=== PATIENT | female | born 1935 | race Caucasian/White ===

== ENCOUNTER 2019-07-22 03:11 | Inpatient (IN) | payer OTHER ==
[~2019-07-22] VITALS: Ht 152.4 cm; Wt 49.9 kg
--- NOTE | 2019-07-22 03:24 | NUR ---
blood and cultures drawn and sent with yarn bleaching machine operator.
--- NOTE | 2019-07-22 03:27 | NUR ---
flu swap sample taken and sent with phelebotomist.
[2019-07-22] MEDS ORDERED: VANCOMYCIN 1 GM VIAL ONE (03:30)
[2019-07-22] MEDS ORDERED: PIPERACILLIN /TAZOBACTAM 3.375 G VIAL IV ONE (03:30)
[2019-07-22] MEDS ORDERED: VANCOMYCIN 1 GM in IV D5W 250 ML IV ONE (03:30)
[2019-07-22] MEDS ORDERED: IV NS 0.9% 1,000 ML BAG IV ONE (03:30)
[2019-07-22] MEDS ORDERED: PIPERACILLIN /TAZOBACTAM 3.375 G in IV D5W 50 ML IV ONE (03:30)
--- NOTE | 2019-07-22 03:39 | NUR ---
urine collected and sent to lab
--- NOTE | 2019-07-22 03:48 | NUR ---
PT CAME TO ER BIB RA C/O WEAKNESS 2x DAYS. PT STATES THAT SHE WAS FEELING CONGESTED AND WEAK, UNABLE TO STAND, AND HAVING TROUBLE BREATHING. AAOX4. NOT IN ANY DISTRESS. PLACED ON NON-REBREATHER MASK 15L, 100% O2. CONNECTED TO RIGHT OF WAY MAN.
[2019-07-22 03:55] LABS: BASOPHILS # (AUTO) 0.1 /CMM (0.0-0.2); BASOPHILS % (AUTO) 0.6 % (0.0-2.0); EOSINOPHILS % (AUTO) 0.2 % (0.0-6.0); HEMATOCRIT 44 % (33-45); HEMOGLOBIN 14.6 g/dL (11.5-14.8); LYMPHOCYTES # (AUTO) 1.8 /CMM (0.8-4.8); LYMPHOCYTES % (AUTO) 12.6 % (20.0-44.0); MEAN CORPUSCULAR HGB CONC 33 g/dl (31.0-36.0); MEAN CORPUSCULAR VOLUME 101 fL (82-100); NEUTROPHILS # (AUTO) 11.5 /CMM (1.8-8.9); NEUTROPHILS % (AUTO) 79.6 % (43.0-81.0); PLATELET COUNT (AUTO) 250 /CMM (150-450); RED BLOOD CELL COUNT(AUTO) 4.31 MIL/uL (4.0-5.2); WHITE BLOOD COUNT (AUTO) 14.4 K/uL (4.3-11.0)
[2019-07-22 04:04] LABS: APPEARANCE,URINE Clear (CLEAR); BILIRUBIN,URINE Negative (NEGATIVE); BLOOD, URINE Trace-lysed Ery/uL (NEGATIVE); COLOR,URINE Yellow (YELLOW); KETONES,URINE 40 (NEGATIVE); LEUKOCYTE ESTERASE ,URINE Negative (NEGATIVE); NITRITE, URINE Negative (NEGATIVE); PROTEIN,URINE Negative (NEGATIVE); UGLUCOSE Negative (NEGATIVE); UROBILINOGEN,URINE 0.2 EU/dL (0.2)
[2019-07-22 04:10] LABS: CALCIUM, SERUM 9.9 mg/dL (8.5-10.1); CARBON DIOXIDE 22 mmol/L (21-32); CHLORIDE 100 mmol/L (98-107); CREATININE 1.2 mg/dL (0.6-1.3); GLUCOSE 151 mg/dL (74-106); POTASSIUM 4.4 mmol/L (3.5-5.1); SODIUM SERUM 138 mmol/L (136-145); UREA NITROGEN, BLOOD 15 mg/dL (7-18)
[2019-07-22 04:16] LABS: BACTERIA,URINE None seen /HPF (None Seen); SQUAMOUS EPITHELIAL CELL,UR Few /HPF (None Seen); WBC,URINE 0-2 /HPF (0-3)
[2019-07-22 04:24] LABS: ALANINE AMINOTRANSFERASE 15 U/L (12-78); ALBUMIN 3.8 g/dL (3.4-5.0); ALKALINE PHOSPHATASE 97 U/L (46-116); ASPARTATE AMINOTRANSFERASE 18 U/L (15-37); B-TYPE NATRIURETIC PEPTIDE 7681 PG/ML (0-125); BILIRUBIN,DIRECT 0.2 mg/dL (0.0-0.2); BILIRUBIN,TOTAL 0.8 mg/dL (0.2-1.0); TOTAL PROTEIN, SERUM 7.9 g/dL (6.4-8.2)
[2019-07-22] MEDS ORDERED: ACETAMINOPHEN ES 500 MG TABLET ONE (04:36)
[2019-07-22] MEDS ORDERED: ACETAMINOPHEN ES 500 MG TABLET PO ONE (05:00)
--- NOTE | 2019-07-22 05:04 | NUR ---
placed on 6L simple face mask oxygen saturation at 99%
--- NOTE | 2019-07-22 05:21 | NUR ---
[facility] CALLED PER ER MD ORDER.
--- NOTE | 2019-07-22 05:37 | NUR ---
JAD RODRIGUEZ TALKING TO DR. LOUISE REGARDING PT.
--- NOTE | 2019-07-22 06:00 | NUR ---
lab at bedside for redrawing of blood for troponin.
--- NOTE | 2019-07-22 06:42 | NUR ---
[facility] TO [facility] REPEAT TROP RESULT. TROPONIN RESULT GIVEN. PENDING LACTIC ACID
--- NOTE | 2019-07-22 06:55 | NUR ---
Patient given 3L oxygen. saturation at 99%.
--- NOTE | 2019-07-22 07:01 | NUR ---
AUTH #[id number] TO ADMIT INPATIENT PER [facility] ACID PLANT HELPER DIOGO.
--- NOTE | 2019-07-22 07:09 | NUR ---
PANEL PAGED PER ER MD ORDER.
--- NOTE | 2019-07-22 07:43 | NUR ---
report given to Christa GARCIA for kofi.
--- NOTE | 2019-07-22 07:44 | NUR ---
REPORT RECEIVED FROM QUIRINO GARCIA FOR LU[facility]
--- NOTE | 2019-07-22 08:02 | NUR ---
PATIENT IN BED, ASLEEP, EASILY AROUSABLE BY VOICE, ON SIMPLE MASK AT 3 LPM TOLERATING WELL. HOOKED TO MONITOR, AT BEDSIDE, WILL CONTINUE TO MONITOR ACCORDINGLY.
[2019-07-22] MEDS ORDERED: LISI-607 PO (08:30)
[2019-07-22] MEDS ORDERED: MELO-105 PO (08:30)
[2019-07-22] MEDS ORDERED: SIMV-49 PO (08:30)
[2019-07-22] MEDS ORDERED: ATEN25TA PO (08:30)
[2019-07-22] MEDS ORDERED: CYAN-51 PO (08:30)
[2019-07-22] MEDS ORDERED: TRAM50TA2 PO (08:30)
[2019-07-22] MEDS ORDERED: ISOS30TA6 PO (08:30)
[2019-07-22] MEDS ORDERED: OMEP20CA15 PO (08:30)
[2019-07-22] MEDS ORDERED: GABA-532 PO (08:30)
[2019-07-22] MEDS ORDERED: IV NS 0.9% 1,000 ML IV PRN (08:42)
[2019-07-22] MEDS ORDERED: CEFTRIAXONE 1 G in IV D5W 50 ML IV SCH ×2 (09:00→16:00)
[2019-07-22] MEDS ORDERED: HYDROCODONE/APAP 5/325MG 1 EACH TABLET PO PRN (09:00)
[2019-07-22] MEDS ORDERED: ONDANSETRON HCL/PF 4 MG/2 ML VIAL IVP PRN (09:00)
[2019-07-22] MEDS ORDERED: LISINOPRIL (5MG) 5 MG TABLET PO SCH (09:00)
[2019-07-22] MEDS ORDERED: ZOLPIDEM TARTRATE 5 MG TABLET PO PRN (09:00)
[2019-07-22] MEDS ORDERED: MAG HYDROX/AL HYDROX/SIMETH 30 ML UDC PO PRN (09:00)
[2019-07-22] MEDS ORDERED: Z GUARD REMEDY 2 OZ OINT TP PRN (09:00)
[2019-07-22] MEDS: ISOSORBIDE MONONITRATE (30MG) 30 MG TAB.SR.24H PO SCH ×2 (09:00→18:24)
[2019-07-22] MEDS: OSELTAMIVIR PHOSPHATE 75 MG CAPSULE PO SCH ×2 (09:00→18:24)
[2019-07-22] MEDS ORDERED: OSELTAMIVIR PHOSPHATE 75 MG CAPSULE PO ONE (09:00)
[2019-07-22] MEDS ORDERED: ACETAMINOPHEN 325 MG TABLET PO PRN (09:00)
[2019-07-22] MEDS ORDERED: AZITHROMYCIN 500 MG in IV D5W 250 ML IV SCH ×2 (09:00→15:00)
[2019-07-22] MEDS ORDERED: MAGNESIUM HYDROXIDE 30 ML UDC PO PRN (09:00)
[2019-07-22] MEDS ORDERED: ENOXAPARIN SODIUM 40 MG/0.4 ML DISP.SYRIN SQ SCH (09:00)
--- NOTE | 2019-07-22 09:43 | NUR ---
PATIENT IN BED, ASLEEP, EASILY AROUSABLE BY VOICE, ON SIMPLE MASK AT 3 LPM TOLERATING WELL. HOOKED TO MONITOR, AT BEDSIDE, WILL CONTINUE TO MONITOR ACCORDINGLY.
[2019-07-22] MEDS ORDERED: ENOXAPARIN SODIUM 60 MG/0.6 ML DISP.SYRIN SQ SCH (11:00)
--- NOTE | 2019-07-22 11:22 | NUR ---
DR ANTON AT BEDSIDE.
--- NOTE | 2019-07-22 11:46 | NUR ---
NURSING SUP GAVE 319.
--- NOTE | 2019-07-22 12:43 | NUR ---
REPORT GIVEN TO STEPHANIE OF TELE UNIT, NURSE ASKED FOR 30MIN BEFORE TRANSFERRING PATIENT UPSTAIRS, STILL CLEANING ROOM FROM A DISCHARGE
--- NOTE | 2019-07-22 13:05 | NUR ---
TRANSFERRED TO TELE UNIT BY RN AND MARINE ELECTRONICS TECHNICIAN IN STABLE CONDITION
--- NOTE | 2019-07-22 13:40 | NUR ---
TELE/RN admitting note Patient received from ER on gurney, A/O x3-4 in no acute distress, VS BP 112/60, HR 64, RR 18, T 98.4 F, O2 sat 92% on 2L NC, pain level 8/10 in back, Tele monitor SR 78. IV line LAC #18g s/l is clean and intact. Skin shows multiple bruises in BUE and BLE. Pictures taken and placed in chart. Patient is on bed rest, and uses the bedpan. Patient is on isolation precautions due to positive Influenza A antigen. Bed is in lowest position, side rails x3 in upright position, call light is within reach and patient is aware of how to call for assistance when needed.
--- NOTE | 2019-07-22 13:55 | NUR ---
TELE/RN NON-ADMIN Non-admin 0900 BID meds. Will give at 1700.
--- NOTE | 2019-07-22 16:00 | NUR ---
TELE/PROGRAM COORDINATOR Received call from Kym GARCIAclaims specialist from [place] stating patient is to be transferred to [facility], report given to Kym GARCIA. Stacia VALLEJO stated she faxed patient labs and H&P to Kym.
[2019-07-22] MEDS ORDERED: SIMVASTATIN 20 MG TABLET PO SCH (18:00)
[2019-07-22 20:00] VITALS: BP 140/76
--- NOTE | 2019-07-22 20:04 | NUR ---
TELE/RN NOTE Received call from Johny Berriost for [place] at [place], they are still looking for a bed. Received checklist from them to give upon transfer.
--- NOTE | 2019-07-22 20:05 | NUR ---
TELE/RN CLOSING NOTE Patient is resting in bed, A/O x3-4 showing no signs of acute distress or SOB, saturating 97% on 2L NC. IV line in the LAC #18g is clean and intact s/l. All patient needs met, all due meds given. Patient kept clean and dry throughout shift. Bed is in lowest position, side rails x3 in upright position, call light is within reach and patient is aware of how to call for assistance when needed. Safety, fall and aspiration precautions enforced. Isolation precautions for positive influenza antigen. Will endorse to bedspread cutter hand.
--- NOTE | 2019-07-22 20:10 | NUR ---
HAND BINDERY ASSEMBLY WORKER NOTES HAND BINDERY ASSEMBLY WORKER NOTES RECEIVED AWAKE, A/O X 4. NOT IN ANY DISTRESS. NO SOB NOTED. DENIES ANY PAIN OR DISCOMFORT AT THIS TIME. WITH IVF INFUSING WELL. ON TELE SR @ 78 WITH [facility] PACS WITH IV-HL PATENT & INTACT. CALL LIGHT WITHIN REACH. BED IN LOWEST POSITION. SR UP X 2 FOR SAFETY. WILL CONTINUE TO MONITOR.
--- NOTE | 2019-07-22 20:45 | NUR ---
AIR BAG CURER NOTES MAYTE [place] COORDINATOR CALLED. PT IS GOING TO BE TRANSFERRED TO [facility] AT ROOM 5114. NOTIFIED KITTY MCCARTHY NP METAL CRAFTS TEACHER FOR [facility] RE D/C. PER KITTY, JUST PUT THE D/C ORDER PER PMD. DISCHARGE SUMMARY WILL BE DONE BY PMD IN AM. ETA FOR AMBULANCE IS 4160.
--- NOTE | 2019-07-22 21:00 | NUR ---
CHANNEL DEVELOPMENT DIRECTOR NOTES PT TO BE TRANSFERRED TO [facility]. DISCHARGE/TRANSFER INSTRUCTIONS PROVIDED. PT UNDERSTOOD IT WELL. REPORT GIVEN TO KIZZY GARCIA. CALLED LILIANA MARTÍNEZ, , TO LET HIM KNOW RE PT'S TRANSFER TO [facility] ROOM 8266. WILL CONTINUE TO MONITOR.
--- NOTE | 2019-07-22 21:30 | NUR ---
ROLL SHOP SUPERVISOR NOTES AMBULANCE CAME IN TO MILK BOTTLER PT. REPORT GIVEN TO EMT PERSONNEL FOR CONTINUITY OF CARE. ENDORSED ACCORDINGLY.
[2019-07-22] MEDS ORDERED: GABAPENTIN 100 MG CAPSULE PO SCH (22:00)
[2019-07-23] MEDS ORDERED: PANTOPRAZOLE 40 MG TABLET.DR PO SCH (07:30)
== END 2019-07-22 21:55 | disposition short-term general hospital (02) | DRG 871 ==
LOC: ER 03:11 → TELE 12:44
PROVIDERS: ADMIT Internal Medicine; ATTEND Internal Medicine
DX: A41.9 Sepsis, unspecified organism (principal); J10.00 Influenza due to other identified influenza virus with unspecified type of pneumonia; J96.01 Acute respiratory failure with hypoxia; I21.A1 Myocardial infarction type 2; I50.32 Chronic diastolic (congestive) heart failure; E87.2 Acidosis; J84.9 Interstitial pulmonary disease, unspecified; E78.5 Hyperlipidemia, unspecified; I25.10 Atherosclerotic heart disease of native coronary artery without angina pectoris; M48.00 Spinal stenosis, site unspecified; Z88.2 Allergy status to sulfonamides; I11.0 Hypertensive heart disease with heart failure; Z79.899 Other long term (current) drug therapy; M19.90 Unspecified osteoarthritis, unspecified site; Z95.5 Presence of coronary angioplasty implant and graft
CPT/HCPCS: 36415; 71045-TC; 80048-TC; 80076-TC; 81000-TC; 83605-TC; 83880; 84484-TC; 85025-TC; 85730-TC; 87040-TC; 87081-TC; 87086-TC; 93307-TC; G0378; J0456; J0696; J1650; J2543; J3370; J7030; J7060

== ENCOUNTER 2020-05-31 22:46 | Emergency (ER) | payer OTHER ==
[~2020-05-31] VITALS: Ht 152.4 cm; Wt 49.9 kg
[~2020-05-31 22:46] MED LIST: ATEN25TA PO; CYAN-51 PO; GABA-532 PO; ISOS30TA6 PO; LISI-607 PO; MELO-105 PO; OMEP20CA15 PO; SIMV-49 PO; TRAM50TA2 PO
--- NOTE | 2020-05-31 22:52 | NUR ---
TANYA 860 FROM THE [facility] AT [place] FOR C/O ABD PAIN, NAUSEA AND DIARRHEA SINCE YESTERDAY PT TO BED 7, AAOX4, -SOB, NAD NOTED, PENDING ER PROVIDER ERASMO
[2020-05-31 23:18] LABS: BASOPHILS # (AUTO) 0.1 /CMM (0.0-0.2); BASOPHILS % (AUTO) 0.9 % (0.0-2.0); EOSINOPHILS % (AUTO) 2.8 % (0.0-6.0); HEMATOCRIT 35 % (33-45); LYMPHOCYTES # (AUTO) 1.3 /CMM (0.8-4.8); LYMPHOCYTES % (AUTO) 14.9 % (20.0-44.0); MEAN CORPUSCULAR HGB CONC 35 g/dl (31.0-36.0); MEAN CORPUSCULAR VOLUME 98 fL (82-100); MONOCYTES # (AUTO) 0.7 /CMM (0.1-1.30); MONOCYTES % (AUTO) 8.6 % (2.0-12.0); NEUTROPHILS # (AUTO) 6.1 /CMM (1.8-8.9); NEUTROPHILS % (AUTO) 72.8 % (43.0-81.0); PLATELET COUNT (AUTO) 285 /CMM (150-450); RED BLOOD CELL COUNT(AUTO) 3.52 MIL/uL (4.0-5.2); WHITE BLOOD COUNT (AUTO) 8.4 K/uL (4.3-11.0)
[2020-05-31] MEDS: IV NS 0.9% 500 ML BAG IV ONE (23:18)
[2020-05-31 23:26] LABS: CARBON DIOXIDE 24 mmol/L (21-32); CHLORIDE 96 mmol/L (98-107); CREATININE 1.5 mg/dL (0.6-1.3); GLUCOSE 109 mg/dL (74-106); POTASSIUM 4.5 mmol/L (3.5-5.1); SODIUM SERUM 132 mmol/L (136-145); UREA NITROGEN, BLOOD 21 mg/dL (7-18)
[2020-05-31 23:31] LABS: ALANINE AMINOTRANSFERASE 18 U/L (12-78); ALBUMIN 3.5 g/dL (3.4-5.0); ALKALINE PHOSPHATASE 84 U/L (46-116); ASPARTATE AMINOTRANSFERASE 20 U/L (15-37); BILIRUBIN,DIRECT 0.1 mg/dL (0.0-0.2); BILIRUBIN,TOTAL 0.5 mg/dL (0.2-1.0); TOTAL PROTEIN, SERUM 7.6 g/dL (6.4-8.2)
--- NOTE | 2020-06-01 00:06 | NUR ---
COVID SWAB COLLECTED AND SENT TO LAB
--- NOTE | 2020-06-01 01:13 | NUR ---
Patient discharged to home in stable condition. Written and verbal after care instructions given. Patient verbalizes understanding of instruction. IV removed. Catheter intact and site benign. Pressure and 4x4 applied to site. No bleeding noted.
[2020-06-01 01:50] VITALS: BP 139/85
== END 2020-06-01 00:30 ==
LOC: ER 22:48
DX: K52.9 Noninfective gastroenteritis and colitis, unspecified (principal); Z20.828 Contact with and (suspected) exposure to other viral communicable diseases; I10 Essential (primary) hypertension; Z95.5 Presence of coronary angioplasty implant and graft
CPT/HCPCS: 36415; 74176; 80048; 80076; 85025; 87426; 99284; C9803; J7040